=== PATIENT | female | born 1940 | race Caucasian/White ===

== ENCOUNTER → 2019-02-04 12:57 | Outpatient (CLI) | payer MEDICARE, BC, SELFPAY | PROVIDERS: Family Provider Nurse Practitioner Family; PCP Nurse Practitioner Family; Visit Provider Family Medicine | DX: M85.88 Other specified disorders of bone density and structure, other site (principal); Z78.0 Asymptomatic menopausal state; E21.3 Hyperparathyroidism, unspecified; Z82.62 Family history of osteoporosis | CPT/HCPCS: 77080 ==

== ENCOUNTER → 2019-08-16 12:40 | Outpatient (CLI) | payer MEDICARE, BC, SELFPAY ==
--- NOTE | 2019-08-16 12:47 | DI.US.S_ITS ---
PROCEDURE: US ABDOMEN COMPLETE INDICATIONS: PAIN TECHNIQUE: Real-time scanning was performed of the abdominal and retroperitoneal organs, with image documentation. COMPARISON: None. FINDINGS: Liver: Liver is normal in size and homogeneous in echotexture. Several scattered simple cysts are seen within the liver parenchyma, the largest measuring up to 3.9 cm left lateral hepatic segment. Gallbladder: Gallbladder appears normal Biliary ducts: Intrahepatic bile ducts are non-dilated. Extrahepatic bile duct caliber measures 4.3 mm. Normal is 6-7 mm or less in diameter, or 10 mm or less post-cholecystectomy. Pancreas: Visualized portions of the pancreas are sonographically normal. Spleen: Spleen is normal in size and homogeneous in echotexture. Kidneys: Kidneys are normal in size and echotexture. Right kidney measures 11.4 cm long; left kidney measures 10.7 cm long. No hydronephrosis or nephrolithiasis. No solid masses. Aorta: Visualized aorta is normal in caliber at less than 3 cm. Iliacs: Proximal common iliac arteries are normal in caliber at less than 2.5 cm. IVC: Intrahepatic inferior vena cava is patent. Miscellaneous: No free abdominal fluid. IMPRESSION: Source of current pain is not identified. Several scattered simple appearing hepatic cysts are noted, which generally are asymptomatic. Gallbladder and bile ducts appear normal. Dictated by: Jl Samuels M.D. on 08/16/2019 at 14:09 Approved by: Jl Samuels M.D. on 08/16/2019 at 14:16
== END ==
PROVIDERS: Family Provider Nurse Practitioner Family; PCP Family Medicine; Referring Provider Family Medicine; Visit Provider Family Medicine
DX: R10.11 Right upper quadrant pain (principal); K76.89 Other specified diseases of liver; R63.0 Anorexia
CPT/HCPCS: 76700

== ENCOUNTER → 2020-10-30 10:38 | Outpatient (CLI) | payer MEDICARE, BC, SELFPAY ==
[2020-10-30 19:18] LABS: Alanine Aminotransferase 28 IU/L (<35); Albumin 4.3 g/dL (3.5-5.0); Albumin Globulin Ratio 1.6 (1.0-2.8); Alkaline Phosphatase 84 U/L (38-126); Aspartate Aminotransferase 34 IU/L (14-36); BUN Creatinine Ratio 26.1 (6-22); Bilirubin Total 0.6 mg/dL (0.2-1.3); Blood Urea Nitrogen 23 mg/dL (7-17); Calcium 11.2 mg/dL (8.4-10.2); Carbon Dioxide 26 mmol/L (22-32); Chloride 101 mmol/L (98-107); Estimated Glomerular Filt Rate > 60.0 mL/min (>60); Globulin 2.7 g/dL (1.7-4.1); Glucose 117 mg/dL (80-110); HEMOLYSIS < 15 (0-50); Potassium 4.3 mmol/L (3.4-5.1); Sodium 134 mmol/L (137-145)
[2020-10-30 19:40] LABS: Add Manual Diff / Slide Review NO; Basophils Absolute Auto 0 /uL (0-100); Basophils Percent Auto 1.2 % (0-2); Eosinophils Absolute Auto 100 /uL (0-450); Hematocrit 38.3 % (36-46); Lymphocytes Absolute Auto 1300 /uL (1100-4500); Lymphocytes Percent Auto 34.4 % (25-40); Mean Corpuscular Hemoglobin 37.6 PG (26-34); Mean Corpuscular Volume 110.7 fL (80-100); Monocytes Absolute Auto 300 /uL (0-900); Monocytes Percent Auto 7.8 % (3-14); Neutrophils Absolute Auto 2100 /uL (1500-7000); Neutrophils Percent Auto 54.6 % (50-75); Platelet Count 130 X10^3/uL (150-400); Red Blood Cell Count 3.47 X10^6/uL (4.0-5.2); White Blood Cell Count 3.8 X10^3/uL (4.5-11.0)
[2020-10-30 19:44] LABS: TSH w/ Reflex to FT4 2.07 uIU/mL (0.47-4.68)
[2020-10-30 20:02] LABS: Vitamin B12 844 pg/mL (239-931)
[2020-10-30 20:50] LABS: Anisocytosis 1+; Macrocytosis 2+
== END ==
PROVIDERS: PCP Family Medicine; Visit Provider Family Medicine
DX: F10.10 Alcohol abuse, uncomplicated (principal); I10 Essential (primary) hypertension; E21.3 Hyperparathyroidism, unspecified; E78.2 Mixed hyperlipidemia; G62.9 Polyneuropathy, unspecified
CPT/HCPCS: 80053; 82397; 82607; 84443; 85025

== ENCOUNTER → 2021-01-25 09:02 | Outpatient (CLI) | payer MEDICARE, BC, SELFPAY ==
[2021-01-25 18:45] LABS: Alanine Aminotransferase 24 IU/L (<35); Albumin 4.2 g/dL (3.5-5.0); Albumin Globulin Ratio 1.6 (1.0-2.8); Alkaline Phosphatase 71 U/L (38-126); Aspartate Aminotransferase 30 IU/L (14-36); BUN Creatinine Ratio 26.1 (6-22); Bilirubin Total 0.8 mg/dL (0.2-1.3); Blood Urea Nitrogen 23 mg/dL (7-17); Calcium 11.2 mg/dL (8.4-10.2); Carbon Dioxide 25 mmol/L (22-32); Chloride 103 mmol/L (98-107); Cholesterol 170 mg/dL (140-199); Estimated Glomerular Filt Rate > 60.0 mL/min (>60); Globulin 2.7 g/dL (1.7-4.1); Glucose 104 mg/dL (80-110); HDL Cholesterol 104 mg/dL (40-60); HEMOLYSIS < 15 (0-50); LDL Cholesterol Calculated 55 mg/dL (<100); Potassium 4.1 mmol/L (3.4-5.1); Sodium 136 mmol/L (137-145); Total Protein 6.9 g/dL (6.3-8.2); Triglycerides 54 mg/dL (35-150)
[2021-01-25 18:48] LABS: Add Manual Diff / Slide Review NO; Basophils Absolute Auto 0 /uL (0-100); Basophils Percent Auto 1.3 % (0-2); Eosinophils Absolute Auto 100 /uL (0-450); Eosinophils Percent Auto 2.9 % (2-4); Hematocrit 39.1 % (36-46); Hemoglobin 13.2 g/dL (12.0-16.0); Lymphocytes Absolute Auto 1300 /uL (1100-4500); Lymphocytes Percent Auto 38.6 % (25-40); Mean Corpuscular HGB Conc 33.8 % (30-36); Mean Corpuscular Hemoglobin 37.4 PG (26-34); Mean Corpuscular Volume 110.7 fL (80-100); Monocytes Absolute Auto 300 /uL (0-900); Monocytes Percent Auto 8.5 % (3-14); Neutrophils Absolute Auto 1600 /uL (1500-7000); Neutrophils Percent Auto 48.7 % (50-75); Platelet Count 145 X10^3/uL (150-400); Red Blood Cell Count 3.53 X10^6/uL (4.0-5.2); White Blood Cell Count 3.3 X10^3/uL (4.5-11.0)
[2021-01-25 19:18] LABS: Anisocytosis 1+; Polychromasia 1+; Spherocytes 1+
[2021-01-25 19:19] LABS: Acanthocytes 1+
[2021-01-27 09:07] LABS: Parathyroid Hormone, Intact 113 pg/mL (15-65)
== END ==
PROVIDERS: PCP Family Medicine; Referring Provider Family Medicine; Visit Provider Family Medicine
DX: E21.3 Hyperparathyroidism, unspecified (principal); I10 Essential (primary) hypertension; G62.9 Polyneuropathy, unspecified; E78.2 Mixed hyperlipidemia; E83.52 Hypercalcemia
CPT/HCPCS: 80053; 80061; 82310; 83970; 85025

== ENCOUNTER → 2021-09-05 13:02 | Outpatient (CLI) | payer MEDICARE, BC, SELFPAY ==
[2021-09-05 19:52] LABS: Alanine Aminotransferase 23 IU/L (<35); Albumin 4.5 g/dL (3.5-5.0); Albumin Globulin Ratio 1.7 (1.0-2.8); Alkaline Phosphatase 61 U/L (38-126); Aspartate Aminotransferase 30 IU/L (14-36); Bilirubin Total 0.9 mg/dL (0.2-1.3); Bilirubin Unconjugated 0.7 mg/dL (0.0-1.1); Globulin 2.6 g/dL (1.7-4.1); HEMOLYSIS < 15 (0-50); Total Protein 7.1 g/dL (6.3-8.2)
[2021-09-05 19:55] LABS: Add Manual Diff / Slide Review NO; Basophils Absolute Auto 100 /uL (0-100); Basophils Percent Auto 1.2 % (0-2); Eosinophils Absolute Auto 100 /uL (0-450); Eosinophils Percent Auto 1.3 % (2-4); Hematocrit 37.3 % (36-46); Hemoglobin 13.2 g/dL (12.0-16.0); Lymphocytes Absolute Auto 1400 /uL (1100-4500); Mean Corpuscular HGB Conc 35.3 % (30-36); Mean Corpuscular Hemoglobin 38.6 PG (26-34); Mean Corpuscular Volume 109.4 fL (80-100); Monocytes Absolute Auto 300 /uL (0-900); Monocytes Percent Auto 7.3 % (3-14); Neutrophils Absolute Auto 2300 /uL (1500-7000); Neutrophils Percent Auto 55.2 % (50-75); Platelet Count 142 X10^3/uL (150-400); Red Blood Cell Count 3.41 X10^6/uL (4.0-5.2); White Blood Cell Count 4.1 X10^3/uL (4.5-11.0)
== END ==
PROVIDERS: Dermatology; PCP Family Medicine
DX: G62.9 Polyneuropathy, unspecified (principal); B35.1 Tinea unguium
CPT/HCPCS: 80076; 85025

== ENCOUNTER → 2021-10-22 11:10 | Outpatient (CLI) | payer MEDICARE, BC, SELFPAY ==
[2021-10-22 18:54] LABS: Alanine Aminotransferase 24 IU/L (<35); Albumin 4.4 g/dL (3.5-5.0); Albumin Globulin Ratio 1.6 (1.0-2.8); Alkaline Phosphatase 75 U/L (38-126); Aspartate Aminotransferase 32 IU/L (14-36); BUN Creatinine Ratio 19.6 (6-22); Bilirubin Total 0.9 mg/dL (0.2-1.3); Blood Urea Nitrogen 18 mg/dL (7-17); Calcium 10.9 mg/dL (8.4-10.2); Carbon Dioxide 25 mmol/L (22-32); Chloride 100 mmol/L (98-107); Estimated Glomerular Filt Rate > 60 mL/min (>60); Globulin 2.7 g/dL (1.7-4.1); Glucose 112 mg/dL (80-110); HEMOLYSIS < 15 (0-50); Sodium 136 mmol/L (137-145); Total Protein 7.1 g/dL (6.3-8.2)
[2021-10-22 18:56] LABS: Alanine Aminotransferase 25 IU/L (<35); Albumin 4.3 g/dL (3.5-5.0); Albumin Globulin Ratio 1.6 (1.0-2.8); Alkaline Phosphatase 74 U/L (38-126); Aspartate Aminotransferase 33 IU/L (14-36); Bilirubin Total 0.8 mg/dL (0.2-1.3); Bilirubin Unconjugated 0.6 mg/dL (0.0-1.1); Globulin 2.7 g/dL (1.7-4.1); HEMOLYSIS < 15 (0-50)
[2021-10-22 19:08] LABS: Add Manual Diff / Slide Review NO; Basophils Absolute Auto 0 /uL (0-100); Basophils Percent Auto 1.2 % (0-2); Eosinophils Absolute Auto 100 /uL (0-450); Eosinophils Percent Auto 1.8 % (2-4); Hematocrit 37.2 % (36-46); Hemoglobin 12.7 g/dL (12.0-16.0); Lymphocytes Absolute Auto 1300 /uL (1100-4500); Lymphocytes Percent Auto 38.2 % (25-40); Mean Corpuscular HGB Conc 34.2 % (30-36); Mean Corpuscular Hemoglobin 38.1 PG (26-34); Mean Corpuscular Volume 111.4 fL (80-100); Monocytes Absolute Auto 300 /uL (0-900); Monocytes Percent Auto 7.6 % (3-14); Neutrophils Absolute Auto 1700 /uL (1500-7000); Neutrophils Percent Auto 51.2 % (50-75); Platelet Count 147 X10^3/uL (150-400); Red Blood Cell Count 3.34 X10^6/uL (4.0-5.2); Red Cell Distribution Width 13.7 % (11.6-14.8); White Blood Cell Count 3.3 X10^3/uL (4.5-11.0)
[2021-10-22 19:25] LABS: Thyroid Stimulating Hormone 2.05 uIU/mL (0.47-4.68)
[2021-10-22 20:39] LABS: Macrocytosis 2+; Platelet Estimate Adequate on smear
[2021-10-26 09:52] LABS: Vitamin B12 831 pg/mL (239-931)
== END ==
PROVIDERS: Family Medicine; PCP Family Medicine
DX: B35.1 Tinea unguium (principal); I10 Essential (primary) hypertension; Z00.00 Encounter for general adult medical examination without abnormal findings; E21.3 Hyperparathyroidism, unspecified
CPT/HCPCS: 80053; 80076; 82607; 84443; 85025

== ENCOUNTER → 2021-12-17 11:42 | Outpatient (CLI) | payer MEDICARE, BC, SELFPAY ==
[2021-12-17 18:24] LABS: Add Manual Diff / Slide Review NO; Basophils Absolute Auto 0 /uL (0-100); Basophils Percent Auto 1.2 % (0-2); Eosinophils Absolute Auto 100 /uL (0-450); Eosinophils Percent Auto 1.4 % (2-4); Hematocrit 35.9 % (36-46); Hemoglobin 12.5 g/dL (12.0-16.0); Lymphocytes Absolute Auto 1200 /uL (1100-4500); Lymphocytes Percent Auto 33.6 % (25-40); Mean Corpuscular HGB Conc 34.8 % (30-36); Mean Corpuscular Hemoglobin 39.2 PG (26-34); Mean Corpuscular Volume 112.6 fL (80-100); Monocytes Absolute Auto 300 /uL (0-900); Monocytes Percent Auto 7.1 % (3-14); Neutrophils Absolute Auto 2100 /uL (1500-7000); Neutrophils Percent Auto 56.7 % (50-75); Platelet Count 127 X10^3/uL (150-400); Red Blood Cell Count 3.18 X10^6/uL (4.0-5.2); Red Cell Distribution Width 13.3 % (11.6-14.8); White Blood Cell Count 3.6 X10^3/uL (4.5-11.0)
[2021-12-17 18:37] LABS: Vitamin D 25 Hydroxy (D3) 67.7 ng/mL (30.0-100.0)
[2021-12-17 19:00] LABS: Alanine Aminotransferase 22 IU/L (<35); Albumin 4.3 g/dL (3.5-5.0); Albumin Globulin Ratio 1.7 (1.0-2.8); Alkaline Phosphatase 71 U/L (38-126); Aspartate Aminotransferase 34 IU/L (14-36); BUN Creatinine Ratio 19.8 (6-22); Bilirubin Total 0.8 mg/dL (0.2-1.3); Blood Urea Nitrogen 19 mg/dL (7-17); Calcium 10.8 mg/dL (8.4-10.2); Carbon Dioxide 24 mmol/L (22-32); Chloride 103 mmol/L (98-107); Estimated Glomerular Filt Rate 59 mL/min (>60); Globulin 2.5 g/dL (1.7-4.1); Glucose 91 mg/dL (80-110); HEMOLYSIS 33 (0-50); Potassium 3.9 mmol/L (3.4-5.1); Sodium 135 mmol/L (137-145); Total Protein 6.8 g/dL (6.3-8.2)
[2021-12-17 19:21] LABS: Vitamin B12 858 pg/mL (239-931)
== END ==
PROVIDERS: PCP Family Medicine; Visit Provider Family Medicine
DX: E21.3 Hyperparathyroidism, unspecified (principal); I10 Essential (primary) hypertension; G62.9 Polyneuropathy, unspecified; D64.9 Anemia, unspecified
CPT/HCPCS: 80053; 82306; 82607; 85025

== ENCOUNTER → 2021-12-24 15:24 | Outpatient (CLI) | payer MEDICARE, BC, SELFPAY | PROVIDERS: PCP Family Medicine; Visit Provider Physician Assistant | DX: N94.9 Unspecified condition associated with female genital organs and menstrual cycle (principal) | CPT/HCPCS: 87070; 87075; 87077; 87186; 87205 ==

== ENCOUNTER → 2022-02-17 09:22 | Outpatient (CLI) | payer MEDICARE, BC, SELFPAY ==
[2022-02-17 19:47] LABS: Add Manual Diff / Slide Review NO; Basophils Absolute Auto 0 /uL (0-100); Basophils Percent Auto 0.7 % (0-2); Eosinophils Absolute Auto 100 /uL (0-450); Eosinophils Percent Auto 2.1 % (2-4); Hematocrit 35.9 % (36-46); Hemoglobin 12.7 g/dL (12.0-16.0); Lymphocytes Absolute Auto 1300 /uL (1100-4500); Lymphocytes Percent Auto 37.5 % (25-40); Mean Corpuscular HGB Conc 35.4 % (30-36); Mean Corpuscular Hemoglobin 39.3 PG (26-34); Monocytes Absolute Auto 200 /uL (0-900); Monocytes Percent Auto 6.6 % (3-14); Neutrophils Absolute Auto 1900 /uL (1500-7000); Neutrophils Percent Auto 53.1 % (50-75); Platelet Count 121 X10^3/uL (150-400); Red Blood Cell Count 3.23 X10^6/uL (4.0-5.2); Red Cell Distribution Width 13.8 % (11.6-14.8); White Blood Cell Count 3.5 X10^3/uL (4.5-11.0)
[2022-02-17 19:52] LABS: Alanine Aminotransferase 23 IU/L (<35); Albumin Globulin Ratio 1.4 (1.0-2.8); Alkaline Phosphatase 91 U/L (38-126); Aspartate Aminotransferase 38 IU/L (14-36); BUN Creatinine Ratio 13.8 (6-22); Bilirubin Total 0.9 mg/dL (0.2-1.3); Blood Urea Nitrogen 12 mg/dL (7-17); Calcium 10.7 mg/dL (8.4-10.2); Carbon Dioxide 24 mmol/L (22-32); Chloride 102 mmol/L (98-107); Cholesterol 163 mg/dL (140-199); Estimated Glomerular Filt Rate > 60 mL/min (>60); Globulin 2.8 g/dL (1.7-4.1); Glucose 89 mg/dL (80-110); HEMOLYSIS 19 (0-50); HEMOLYSIS 33 (0-50); Iron 156 ug/dL (37-170); Potassium 3.6 mmol/L (3.4-5.1); Sodium 134 mmol/L (137-145); Total Protein 6.8 g/dL (6.3-8.2); Triglycerides 83 mg/dL (35-150)
[2022-02-17 20:05] LABS: Percent Iron Saturation 69 % (15-50); Total Iron Binding Capacity 227 ug/dL (265-497); Transferrin 190 mg/dL (206-381)
[2022-02-17 20:14] LABS: Polychromasia 1+
[2022-02-17 20:15] LABS: Anisocytosis 1+
[2022-02-17 20:16] LABS: Rouleaux 1+
[2022-02-17 20:20] LABS: HDL Cholesterol 115 mg/dL (40-60); LDL Cholesterol Calculated 31 mg/dL (<100)
[2022-02-17 20:41] LABS: Vitamin B12 745 pg/mL (239-931)
[2022-02-19 09:56] LABS: Calcium 10.7 mg/dL (8.7-10.3); Parathyroid Hormone, Intact 90 pg/mL (15-65)
== END ==
PROVIDERS: PCP Family Medicine; Visit Provider Family Medicine
DX: D64.9 Anemia, unspecified (principal); E21.3 Hyperparathyroidism, unspecified; E78.2 Mixed hyperlipidemia; E83.52 Hypercalcemia; I10 Essential (primary) hypertension
CPT/HCPCS: 80053; 80061; 82310; 82607; 83540; 83550; 83970; 85025

== ENCOUNTER → 2022-04-07 14:17 | Outpatient (CLI) | payer MEDICARE, BC, SELFPAY ==
[2022-04-07 19:56] LABS: Add Manual Diff / Slide Review NO; Basophils Absolute Auto 100 /uL (0-100); Basophils Percent Auto 1.4 % (0-2); Eosinophils Absolute Auto 0 /uL (0-450); Eosinophils Percent Auto 0.8 % (2-4); Hematocrit 35.3 % (36-46); Hemoglobin 12.2 g/dL (12.0-16.0); Lymphocytes Absolute Auto 800 /uL (1100-4500); Lymphocytes Percent Auto 19.9 % (25-40); Mean Corpuscular HGB Conc 34.6 % (30-36); Mean Corpuscular Hemoglobin 38.1 PG (26-34); Mean Corpuscular Volume 110.1 fL (80-100); Monocytes Absolute Auto 300 /uL (0-900); Monocytes Percent Auto 6.7 % (3-14); Neutrophils Absolute Auto 3000 /uL (1500-7000); Neutrophils Percent Auto 71.2 % (50-75); Platelet Count 170 X10^3/uL (150-400); Red Blood Cell Count 3.21 X10^6/uL (4.0-5.2); Red Cell Distribution Width 13.4 % (11.6-14.8); White Blood Cell Count 4.2 X10^3/uL (4.5-11.0)
== END ==
PROVIDERS: PCP Family Medicine; Visit Provider Family Medicine
DX: I10 Essential (primary) hypertension (principal); D61.818 Other pancytopenia; E78.2 Mixed hyperlipidemia; I26.02 Saddle embolus of pulmonary artery with acute cor pulmonale; I27.81 Cor pulmonale (chronic); I82.433 Acute embolism and thrombosis of popliteal vein, bilateral
CPT/HCPCS: 85025

== ENCOUNTER → 2022-09-29 13:12 | Outpatient (CLI) | payer MEDICARE, BC, SELFPAY ==
[2022-09-29 20:08] LABS: BUN Creatinine Ratio 22.6 (6-22); Blood Urea Nitrogen 21 mg/dL (7-17); Carbon Dioxide 25 mmol/L (22-32); Chloride 99 mmol/L (98-107); Cholesterol 154 mg/dL (140-199); Estimated Glomerular Filt Rate > 60 mL/min (>60); Glucose 119 mg/dL (80-110); HDL Cholesterol 90 mg/dL (40-60); HEMOLYSIS < 15 (0-50); LDL Cholesterol Calculated 49 mg/dL (<100); Sodium 133 mmol/L (137-145); Triglycerides 74 mg/dL (35-150)
[2022-09-29 20:17] LABS: Vitamin D 25 Hydroxy (D3) 71.9 ng/mL (30.0-100.0)
[2022-10-02 14:06] LABS: Albumin 3.8 g/dL (2.9-4.4); Alpha 1 Globulin 0.3 g/dL (0.0-0.4); Alpha 2 Globulin 0.6 g/dL (0.4-1.0); Beta 1 Globulin 0.8 g/dL (0.7-1.3); Protein, Total 6.5 g/dL (6.0-8.5)
[2022-10-03 07:36] LABS: Calcium 10.8 mg/dL (8.7-10.3); Parathyroid Hormone, Intact 90 pg/mL (15-65)
== END ==
PROVIDERS: PCP Family Medicine; Visit Provider Family Medicine
DX: I10 Essential (primary) hypertension (principal); E21.3 Hyperparathyroidism, unspecified; E83.52 Hypercalcemia; D64.9 Anemia, unspecified; G62.9 Polyneuropathy, unspecified; D61.818 Other pancytopenia; F10.10 Alcohol abuse, uncomplicated; I26.02 Saddle embolus of pulmonary artery with acute cor pulmonale; I27.81 Cor pulmonale (chronic); I82.433 Acute embolism and thrombosis of popliteal vein, bilateral; E78.2 Mixed hyperlipidemia; E55.9 Vitamin D deficiency, unspecified
CPT/HCPCS: 80048; 80061; 82306; 82310; 83970; 84155; 84165

== ENCOUNTER → 2022-12-08 12:11 | Outpatient (CLI) | payer MEDICARE, BC, SELFPAY ==
--- NOTE | 2022-12-08 12:12 | DI.RAD.S_ITS ---
PROCEDURE: XR KUB INDICATIONS: fall TECHNIQUE: One view of the abdomen acquired. COMPARISON: None. FINDINGS: Surgical changes and devices: None. Bowel: Prominent bowel gas is seen throughout the abdomen, particularly with stool and colonic gas. Soft tissues: Scattered costal cartilage calcifications. No suspicious calcifications elsewhere. Bones: Spine and hip degenerative changes. IMPRESSION: Limited supine radiography without acute radiographic abnormality. There is increased bowel gas and stool burden. Scattered osseous degenerative changes. Consider CT if there is concern for acute abdomen. Dictated by: Paul Berry M.D. on 12/08/2022 at 14:43 Approved by: Paul Berry M.D. on 12/08/2022 at 14:44
== END ==
PROVIDERS: PCP Family Medicine; Referring Provider Surgery; Visit Provider Surgery
DX: M47.816 Spondylosis without myelopathy or radiculopathy, lumbar region (principal); M25.551 Pain in right hip; M25.552 Pain in left hip
CPT/HCPCS: 74018

== ENCOUNTER → 2022-12-15 11:40 | Outpatient (CLI) | payer MEDICARE, BC, SELFPAY ==
--- NOTE | 2022-12-15 12:18 | DI.MRI.S_ITS ---
PROCEDURE: MR THORACIC SPINE WO CON INDICATIONS: low back pain radiating to lower abdomen TECHNIQUE: Noncontrast sagittal T1 spine echo and T2 fast spin echo, sagittal STIR, and T2 fast spin echo through the thoracic spine. COMPARISON: None. FINDINGS: Image quality: Excellent. Alignment and Curvature: There is normal bony alignment. Bone Marrow: There is acute to subacute compression fracture at L2 predominantly involving the superior endplate without significant overall height loss. No retropulsed fracture fragment present. Marrow edema is noted. Marrow signal, height and alignment in the thoracic spine proper is maintained. Spinal Cord: Visualized spinal cord is normal in size and signal. Paraspinous Soft Tissues: No paravertebral masses. Miscellaneous: The central canal and foramina are widely patent throughout the thoracic spine. At L1-2, posterior disc bulge results in mild central stenosis. At L2-3, circumferential disc bulge again results in mild central stenosis. At L3-4, circumferential disc bulge and ligamentum flavum laxity results in moderate central and severe left foraminal stenosis IMPRESSION: Acute to subacute L2 compression fracture with marrow edema and no retropulsed fracture fragment. 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 on 12/15/2022 at 14:59
== END ==
PROVIDERS: PCP Family Medicine; Referring Provider Family Medicine; Visit Provider Family Medicine
DX: M48.56XA Collapsed vertebra, not elsewhere classified, lumbar region, initial encounter for fracture; M47.26 Other spondylosis with radiculopathy, lumbar region; M51.16 Intervertebral disc disorders with radiculopathy, lumbar region
CPT/HCPCS: 72146

== ENCOUNTER 2022-12-15 13:57 | Emergency (ER) | payer MEDICARE, BC, SELFPAY ==
[2022-12-15 14:12] VITALS: BP 133/60; PULSE 60; RESP 16; TEMP 36.7; O2SAT 100; BMI 22.1
--- NOTE | 2022-12-15 14:24 | DI.CT.S_ITS ---
PROCEDURE: CT HEAD/BRAIN WO CON INDICATIONS: Fall on thinners come right occipital hematoma TECHNIQUE: Noncontrast 4.5 mm thick angled axial sections acquired from the foramen magnum to the vertex, with coronal and sagittal reformats. For radiation dose reduction, the following was used: automated exposure control, adjustment of mA and/or kV according to patient size. COMPARISON: None. FINDINGS: Image quality: Excellent. CSF spaces: Basal cisterns are patent. No extra-axial fluid collections. Ventricles are normal in size and shape. Brain: No midline shift. No intracranial masses or hemorrhage. Herrera-white matter interface is normal. Remote left basal ganglia infarct. Skull and face: Calvarium and visualized facial bones are intact, without suspicious lesions. Sinuses: Near complete opacification of the right maxillary sinus, with air-fluid levels. Bony sclerosis of the right maxillary cristina IMPRESSION: No acute intracranial pathology. Acute on chronic right maxillary sinusitis. Dictated by: Dangelo Davis M.D. on 12/15/2022 at 14:50 Approved by: Dangelo Davis M.D. on 12/15/2022 at 14:52
--- NOTE | 2022-12-15 14:24 | ED.FALL ---
HPI - Fall General Chief Complaint: Fall Stated Complaint: fell last night lump on head bleeding Time Seen by Provider: 12/15/22 14:14 Source: patient Mode of arrival: Wheelchair Limitations: no limitations History of Present Illness HPI Narrative: 82-year-old female. Is on anticoagulation. Is here for evaluation of injuries that she sustained when she fell yesterday. She states she was walking in her house yesterday. She states she just lost her balance and fell over. No loss of consciousness. They did have to have neighbors come over and pick her up. She was getting an MRI today of her upper back. This was ordered by her primary doctor. She was advised by the MRI staff to come to the emergency department because of some dried blood on the back of her head. She reports no neck pain. No new pain from the fall yesterday. Related Data Home Medications Medication Instructions Recorded Confirmed ASCORBIC ACID (VITAMIN C) 1,000 mg PO Q DAY ##0 03/16/12 12/11/22 Coenzyme Q10 (#CO ENZYME Q-10) 50 mg PO BID ##0 03/16/12 12/11/22 VITAMIN D (Vitamin D3) 2,000 unit PO BID ##0 03/16/12 12/11/22 milk thistle PO 10/21/20 12/11/22 omega-3 fatty acids 1,000 mg 1,000 mg PO DAILY 10/21/20 12/11/22 capsule vitamin K2 100 mcg capsule 100 mcg PO DAILY 10/21/20 12/11/22 enalapril maleate 5 mg tablet 5 mg PO BID 08/19/22 12/11/22 (Vasotec) Previous Rx's Medication Instructions Recorded hydrochlorothiazide 25 mg tablet 25 mg PO DAILY #90 tabs 12/17/21 mupirocin 2 % topical ointment 1 applic topical TID #22 grams 12/26/21 atorvastatin 20 mg tablet 20 mg PO BEDTIME #90 tabs 03/12/22 apixaban 5 mg tablet (Eliquis) 5 mg PO BID #180 tabs 03/24/22 ferrous sulfate 325 mg (65 mg 325 mg PO DAILY #90 tabs 09/12/22 iron) tablet (FeroSul) gabapentin 100 mg capsule See Rx Instructions PO TID #90 caps 12/11/22 Allergies Allergy/AdvReac Type Severity Reaction Status Date / Time ciprofloxacin [From Cipro] Allergy Intermediate Rash Verified 12/15/22 14:12 propofol Allergy Unknown Verified 12/15/22 14:12 Review of Systems Constitutional Constitutional: Reports system reviewed and no additional complaints, except as documented Musculoskeletal Musculoskeletal: Reports system reviewed and no additional complaints, except as documented Integumentary/Breasts Skin/Breast: Reports system reviewed and no additional complaints, except as documented Neurologic Neurologic: Reports system reviewed and no additional complaints, except as documented Hematologic/Lymphatic On Anticoagulants: No Patient History Medical History Anxiety and depression Bifascicular block Breast cancer Chicken pox (~1942) Chronic back pain Complete uterovaginal prolapse Cystocele Hemorrhoid Leukopenia 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 Measles (~1943) Occlusion and stenosis of unspecified carotid artery Paroxysmal tachycardia, unspecified Personal history of malignant neoplasm of breast Poisoning by vitamins, accidental (unintentional), initial encounter Primary hyperparathyroidism Pyuria Thoracic aortic ectasia Tinnitus, unspecified ear Surgical History Anesthesia History of cataract removal with insertion of prosthetic lens (~2015) History of knee replacement History of knee replacement History of lumpectomy Family History Brother Cancer Child Age: 53 Multiple sclerosis Father Cancer Hypertension Mother Cancer Sister Age: 81 Heart attack Sister Cancer Social History Smoking Status: Never smoker Smoking Status: Never smoker Substance Use Type: does not use Exam Initial Vital Signs Initial Vital Signs: Vital Signs Temperature 98.0 F 12/15/22 14:12 Pulse Rate 60 12/15/22 14:12 Respiratory Rate 16 12/15/22 14:12 Blood Pressure 133/60 12/15/22 14:12 Pulse Oximetry 100 12/15/22 14:12 Oxygen Delivery Method Room Air 12/15/22 14:12 HENMT Head: contusion (Right occipital region) Resp Effort & Inspection: normal respiratory effort Auscultation: clear to auscultation bilaterally Cardio Rate: regular rate Back/Spine/Pelvis Cervical Spine: No cervical spinal tenderness Thoracic/Lumbar Spine: thoracic spinal tenderness (This is not new from the fall) Skin Other: Contusion of the right occipital region Neuro General: patient alert, patient awake and moves all extremities Extrem General: capillary refill normal Scores Nexus Score for C-Spine Focal Neurologic deficit present: No Midline spinal tenderness present: No Altered level of conciousness present: No Intoxication present: No Distracting Injury Present: No Nexus Criteria for C-spine: 0 Course Orders Ordered: ED Orders 12/15/22 14:15 Basic Metabolic Panel Stat Complete Blood Count AUTO DIFF Stat 12/15/22 14:24 CT head/brain wo con Stat Vital Signs Vital signs: Vital Signs - 8 hr 12/15/22 14:12 Temperature 98.0 F Pulse Rate 60 Respiratory Rate 16 Blood Pressure 133/60 Pulse Oximetry 100 Oxygen Delivery Method Room Air MDM - Fall Imaging Data CT scan - head: Radiologist's Impression: PROCEDURE:? CT HEAD/BRAIN WO CON ? INDICATIONS:? Fall on thinners come right occipital hematoma ? TECHNIQUE:? Noncontrast 4.5 mm thick angled axial sections acquired from the foramen magnum to the vertex, with coronal and sagittal reformats.? For radiation dose reduction, the following was used:? automated exposure control, adjustment of mA and/or kV according to patient size.? ? COMPARISON:? None. ? FINDINGS:? Image quality:? Excellent.? ? CSF spaces:? Basal cisterns are patent.? No extra-axial fluid collections.? Ventricles are normal in size and shape.? ? Brain:? No midline shift.? No intracranial masses or hemorrhage.? Herrera-white matter interface is normal.? Remote left basal ganglia infarct. ? Skull and face:? Calvarium and visualized facial bones are intact, without suspicious lesions.? ? Sinuses:? Near complete opacification of the right maxillary sinus, with air-fluid levels.? Bony sclerosis of the right maxillary cristina ? IMPRESSION:? No acute intracranial pathology.? ? Acute on chronic right maxillary sinusitis. [facility] Narrative Medical decision making narrative: Patient fell yesterday. She states she just lost her balance and fell over. She would an MRI that was scheduled today of her upper back. This was not from the fall yesterday but from prior upper back discomfort. She was sent here to the emergency department from the MRI staff because of some dried blood on the back of her head. This area was cleaned. There is no injury that requires intervention here in the ER. Her head CT is unremarkable. Her cervical spine is cleared by nexus criteria. Patient reports no upper or lower extremity discomfort. We will hold on further radiologic studies for now. Will discharge patient home. She can continue to take all of her medications as directed. She was given return precautions. She expressed understanding and agreement. Discharge Plan Departure Patient Disposition: Home Clinical Impression: Contusion of scalp Instructions: Contusion, How to Prevent Falls Activity Restrictions/Additional Instructions: I recommend that you continue to take all of your medications as directed. You can shower like normal. Contact your primary doctor for a follow-up. Return to the emergency department for new or worsening symptoms. Prescriptions: No Action VITAMIN D (Vitamin D3) 2,000 unit PO BID Qty: 0 ASCORBIC ACID (VITAMIN C) 1,000 mg PO Q DAY Qty: 0 Coenzyme Q10 (#CO ENZYME Q-10) 50 mg PO BID Qty: 0 atorvastatin 20 mg tablet 20 mg PO BEDTIME Qty: 90 3RF omega-3 fatty acids 1,000 mg capsule 1,000 mg PO DAILY milk thistle PO vitamin K2 100 mcg capsule 100 mcg PO DAILY gabapentin 100 mg capsule See Rx Instructions PO TID Qty: 90 0RF Rx Instructions: Take one to two tablets three times daily for thoracic pain hydrochlorothiazide 25 mg tablet 25 mg PO DAILY Qty: 90 3RF mupirocin 2 % ointment 1 applic topical TID Qty: 22 0RF Eliquis 5 mg tablet 5 mg PO BID Qty: 180 3RF enalapril maleate [Vasotec] 5 mg tablet 5 mg PO BID ferrous sulfate [FeroSul] 325 mg (65 mg iron) tablet 325 mg PO DAILY Qty: 90 0RF Referrals: Myles Grace MD [Primary Care Provider] - Stand Alone Forms: Patient Portal/API
== END 2022-12-15 15:21 | disposition home or self-care (01) ==
PROVIDERS: Emergency Provider Emergency Medicine; PCP Family Medicine
DX: S00.03XA Contusion of scalp, initial encounter (principal); W18.30XA Fall on same level, unspecified, initial encounter; M48.56XA Collapsed vertebra, not elsewhere classified, lumbar region, initial encounter for fracture; M47.26 Other spondylosis with radiculopathy, lumbar region; M51.16 Intervertebral disc disorders with radiculopathy, lumbar region
CPT/HCPCS: 70450; 72146; 99283; 99284

== ENCOUNTER → 2023-03-02 11:30 | Outpatient (CLI) | payer MEDICARE, BC, SELFPAY ==
[2023-03-02 20:15] LABS: Add Manual Diff / Slide Review NO; Basophils Absolute Auto 0 /uL (0-100); Basophils Percent Auto 1.5 % (0-2); Eosinophils Absolute Auto 100 /uL (0-450); Eosinophils Percent Auto 2.8 % (2-4); Hematocrit 36.4 % (36-46); Hemoglobin 12.7 g/dL (12.0-16.0); Lymphocytes Absolute Auto 1300 /uL (1100-4500); Lymphocytes Percent Auto 38.5 % (25-40); Mean Corpuscular HGB Conc 34.8 % (30-36); Mean Corpuscular Hemoglobin 39.1 PG (26-34); Mean Corpuscular Volume 112.4 fL (80-100); Monocytes Absolute Auto 300 /uL (0-900); Neutrophils Absolute Auto 1600 /uL (1500-7000); Neutrophils Percent Auto 47.2 % (50-75); Platelet Count 156 X10^3/uL (150-400); Red Blood Cell Count 3.24 X10^6/uL (4.0-5.2); Red Cell Distribution Width 16.1 % (11.6-14.8); White Blood Cell Count 3.3 X10^3/uL (4.5-11.0)
[2023-03-02 20:16] LABS: Alanine Aminotransferase 22 IU/L (<35); Albumin 3.9 g/dL (3.5-5.0); Albumin Globulin Ratio 1.5 (1.0-2.8); Alkaline Phosphatase 69 U/L (38-126); Aspartate Aminotransferase 28 IU/L (14-36); BUN Creatinine Ratio 25.3 (6-22); Bilirubin Total 0.5 mg/dL (0.2-1.3); Blood Urea Nitrogen 22 mg/dL (7-17); Calcium 11.2 mg/dL (8.4-10.2); Carbon Dioxide 24 mmol/L (22-32); Chloride 101 mmol/L (98-107); Estimated Glomerular Filt Rate > 60 mL/min (>60); Globulin 2.6 g/dL (1.7-4.1); Glucose 117 mg/dL (80-110); HEMOLYSIS < 15 (0-50); Potassium 3.8 mmol/L (3.4-5.1); Sodium 136 mmol/L (137-145); Total Protein 6.5 g/dL (6.3-8.2)
[2023-03-02 20:37] LABS: Macrocytosis 1+
== END ==
PROVIDERS: PCP Family Medicine; Visit Provider Family Medicine
DX: I77.810 Thoracic aortic ectasia (principal); R10.9 Unspecified abdominal pain
CPT/HCPCS: 80053; 85025

== ENCOUNTER → 2023-08-27 12:24 | Outpatient (CLI) | payer MEDICARE, BC, SELFPAY ==
[2023-08-27 19:30] LABS: Add Manual Diff / Slide Review NO; Basophils Absolute Auto 0 /uL (0-100); Basophils Percent Auto 0.8 % (0-2); Eosinophils Absolute Auto 0 /uL (0-450); Eosinophils Percent Auto 1.5 % (2-4); Hematocrit 32.8 % (36-46); Hemoglobin 11.4 g/dL (12.0-16.0); Lymphocytes Absolute Auto 1000 /uL (1100-4500); Lymphocytes Percent Auto 29.1 % (25-40); Mean Corpuscular HGB Conc 34.8 % (30-36); Mean Corpuscular Hemoglobin 37.5 PG (26-34); Mean Corpuscular Volume 107.8 fL (80-100); Monocytes Absolute Auto 200 /uL (0-900); Monocytes Percent Auto 7.5 % (3-14); Neutrophils Absolute Auto 2000 /uL (1500-7000); Neutrophils Percent Auto 61.1 % (50-75); Platelet Count 192 X10^3/uL (150-400); Red Blood Cell Count 3.04 X10^6/uL (4.0-5.2); Red Cell Distribution Width 15.2 % (11.6-14.8); White Blood Cell Count 3.3 X10^3/uL (4.5-11.0)
[2023-08-27 20:28] LABS: BUN Creatinine Ratio 27.7 (6-22); Blood Urea Nitrogen 23 mg/dL (7-17); Calcium 11.3 mg/dL (8.4-10.2); Carbon Dioxide 24 mmol/L (22-32); Chloride 108 mmol/L (98-107); Cholesterol 153 mg/dL (140-199); Estimated Glomerular Filt Rate > 60 mL/min (>60); Glucose 105 mg/dL (80-110); HDL Cholesterol 69 mg/dL (40-60); HEMOLYSIS < 15 (0-50); LDL Cholesterol Calculated 71 mg/dL (<100); Potassium 3.9 mmol/L (3.4-5.1); Sodium 139 mmol/L (137-145); Triglycerides 67 mg/dL (35-150)
== END ==
PROVIDERS: PCP Family Medicine; Visit Provider Family Medicine
DX: I47.9 Paroxysmal tachycardia, unspecified (principal); I65.29 Occlusion and stenosis of unspecified carotid artery; E83.52 Hypercalcemia; I10 Essential (primary) hypertension; E78.2 Mixed hyperlipidemia
CPT/HCPCS: 80048; 80061; 82306; 85025

== ENCOUNTER → 2024-05-11 12:04 | Outpatient (CLI) | payer MEDICARE, BC, SELFPAY ==
[2024-05-11 20:32] LABS: Reticulocyte Count, Percent 1.3 % (1.1-2.6)
[2024-05-11 20:35] LABS: HEMOLYSIS 23 (0-50); Iron 131 ug/dL (37-170)
[2024-05-11 20:39] LABS: BUN Creatinine Ratio 27.5 (6-22); Blood Urea Nitrogen 22 mg/dL (7-17); Calcium 10.5 mg/dL (8.4-10.2); Carbon Dioxide 23 mmol/L (22-32); Chloride 111 mmol/L (98-107); Cholesterol 199 mg/dL (140-199); Estimated Glomerular Filt Rate > 60 mL/min (>60); Glucose 98 mg/dL (80-110); HDL Cholesterol 83 mg/dL (40-60); HEMOLYSIS < 15 (0-50); LDL Cholesterol Calculated 101 mg/dL (<100); Potassium 4.6 mmol/L (3.4-5.1); Sodium 137 mmol/L (137-145); Triglycerides 74 mg/dL (35-150)
[2024-05-11 20:46] LABS: Basophils Absolute Auto 0 /uL (0-100); Basophils Percent Auto 1.3 % (0-2); Eosinophils Absolute Auto 100 /uL (0-450); Eosinophils Percent Auto 3.1 % (2-4); Hematocrit 34.7 % (36-46); Hemoglobin 11.4 g/dL (12.0-16.0); Lymphocytes Absolute Auto 1300 /uL (1100-4500); Lymphocytes Percent Auto 38.3 % (25-40); Mean Corpuscular HGB Conc 32.8 % (30-36); Mean Corpuscular Hemoglobin 37.9 PG (26-34); Mean Corpuscular Volume 115.4 fL (80-100); Monocytes Absolute Auto 200 /uL (0-900); Monocytes Percent Auto 7.5 % (3-14); Neutrophils Absolute Auto 1700 /uL (1500-7000); Neutrophils Percent Auto 49.8 % (50-75); Platelet Count 172 X10^3/uL (150-400); Red Cell Distribution Width 18.9 % (11.6-14.8); White Blood Cell Count 3.3 X10^3/uL (4.5-11.0)
[2024-05-11 20:47] LABS: Percent Iron Saturation 64 % (15-50); Total Iron Binding Capacity 205 ug/dL (265-497); Transferrin 190 mg/dL (206-381)
[2024-05-11 20:49] LABS: Add Manual Diff / Slide Review SLIDE REVIEW
[2024-05-11 20:59] LABS: Vitamin D 25 Hydroxy (D3) 46.1 ng/mL (30.0-100.0)
[2024-05-11 21:08] LABS: TSH w/ Reflex to FT4 2.53 uIU/mL (0.47-4.68)
[2024-05-11 21:21] LABS: Macrocytosis 2+
[2024-05-11 21:27] LABS: Vitamin B12 262 pg/mL (239-931)
[2024-05-13 19:38] LABS: Calcium 10.6 mg/dL (8.7-10.3); Parathyroid Hormone, Intact 146 pg/mL (15-65)
== END ==
PROVIDERS: PCP Family Medicine; Visit Provider Family Medicine
DX: D64.9 Anemia, unspecified (principal); I65.29 Occlusion and stenosis of unspecified carotid artery; E21.3 Hyperparathyroidism, unspecified; I47.9 Paroxysmal tachycardia, unspecified; F10.90 Alcohol use, unspecified, uncomplicated; Z86.718 Personal history of other venous thrombosis and embolism; E83.52 Hypercalcemia; I10 Essential (primary) hypertension; G62.9 Polyneuropathy, unspecified; E78.2 Mixed hyperlipidemia; R26.89 Other abnormalities of gait and mobility
CPT/HCPCS: 80048; 80061; 82306; 82310; 82607; 83540; 83550; 83970; 84443; 85025; 85045

== ENCOUNTER → 2024-11-02 10:07 | Outpatient (CLI) | payer MEDICARE, BC, SELFPAY ==
[2024-11-02 19:03] LABS: Add Manual Diff / Slide Review NO; Basophils Absolute Auto 0 /uL (0-100); Basophils Percent Auto 1.5 % (0-2); Eosinophils Absolute Auto 100 /uL (0-450); Eosinophils Percent Auto 2.8 % (2-4); Hematocrit 36.6 % (36-46); Hemoglobin 12.7 g/dL (12.0-16.0); Lymphocytes Absolute Auto 1000 /uL (1100-4500); Lymphocytes Percent Auto 39.7 % (25-40); Mean Corpuscular HGB Conc 34.8 % (30-36); Mean Corpuscular Hemoglobin 41.1 PG (26-34); Mean Corpuscular Volume 118.3 fL (80-100); Monocytes Absolute Auto 200 /uL (0-900); Monocytes Percent Auto 7.1 % (3-14); Neutrophils Absolute Auto 1200 /uL (1500-7000); Neutrophils Percent Auto 48.9 % (50-75); Platelet Count 140 X10^3/uL (150-400); Red Blood Cell Count 3.09 X10^6/uL (4.0-5.2); Red Cell Distribution Width 13.9 % (11.6-14.8); White Blood Cell Count 2.5 X10^3/uL (4.5-11.0)
[2024-11-02 19:07] LABS: Alanine Aminotransferase 22 IU/L (<35); Albumin 4.3 g/dL (3.5-5.0); Albumin Globulin Ratio 1.7 (1.0-2.8); Alkaline Phosphatase 102 U/L (38-126); Aspartate Aminotransferase 27 IU/L (14-36); BUN Creatinine Ratio 18.3 (6-22); Bilirubin Total 0.8 mg/dL (0.2-1.3); Blood Urea Nitrogen 17 mg/dL (7-17); Calcium 11.1 mg/dL (8.4-10.2); Carbon Dioxide 22 mmol/L (22-32); Chloride 110 mmol/L (98-107); Cholesterol 150 mg/dL (140-199); Estimated Glomerular Filt Rate 60 mL/min (>60); Globulin 2.6 g/dL (1.7-4.1); Glucose 111 mg/dL (70-99); HDL Cholesterol 83 mg/dL (40-60); HEMOLYSIS < 15 (0-50); LDL Cholesterol Calculated 48 mg/dL (<100); Potassium 4.7 mmol/L (3.4-5.1); Sodium 141 mmol/L (137-145); Total Protein 6.9 g/dL (6.3-8.2); Triglycerides 93 mg/dL (35-150)
[2024-11-03 15:57] LABS: Hep C Virus Ab w/Reflex Quant NEGATIVE s/c (NEGATIVE)
[2024-11-04 08:36] LABS: Calcium 10.8 mg/dL (8.7-10.3); Parathyroid Hormone, Intact 132 pg/mL (15-65)
== END ==
PROVIDERS: PCP Family Medicine; Visit Provider Family Medicine
DX: D64.9 Anemia, unspecified (principal); Z13.6 Encounter for screening for cardiovascular disorders; Z11.59 Encounter for screening for other viral diseases; F10.90 Alcohol use, unspecified, uncomplicated; I65.29 Occlusion and stenosis of unspecified carotid artery; Z86.718 Personal history of other venous thrombosis and embolism; I10 Essential (primary) hypertension; E21.3 Hyperparathyroidism, unspecified; E78.2 Mixed hyperlipidemia; E83.52 Hypercalcemia
CPT/HCPCS: 80053; 80061; 82310; 83970; 85025; 86803

== ENCOUNTER 2025-03-30 14:49 | Emergency (ER) | payer MEDICARE, BC, SELFPAY ==
[2025-03-30] VITALS (12 sets, daily range): BP systolic 124–170; BP diastolic 63–86; PULSE 59–83; RESP 11–29; TEMP 36.6; O2SAT 96–100; BMI 22.1
--- NOTE | 2025-03-30 15:00 | DI.CT.S_ITS ---
PROCEDURE: CT CHEST ABD PEL W CON INDICATIONS: fall ribs, back pelvis all hurt TECHNIQUE: After the administration of intravenous contrast, 5 mm thick sections acquired from the lung apices to the symphysis. 2.5 mm thick coronal and sagittal reformats were acquired. Additional 7 mm thick coronal maximum intensity projection (MIP) reformats acquired through the lungs. Optional 10-minute delayed imaging may be performed from the kidneys to the bladder. For radiation dose reduction, the following was used: automated exposure control, adjustment of mA and/or kV according to patient size. COMPARISON: None. FINDINGS: Image quality: Diagnostic. CHEST: Lower Neck: No enlarged lymph nodes. Thyroid: No thyroid nodules which require sonographic evaluation. Axillae: No enlarged lymph nodes. Chest Wall: No subcutaneous gas. Lungs and Pleura: No pulmonary contusions or lacerations. Linear scarring/atelectasis are seen scattered in periphery of bilateral lung page. No acute airspace opacities. No pneumothorax or hemothorax. Mediastinum: No mediastinal hematomas. Heart size is enlarged with small to moderate pericardial effusion and measures up to 1.1 cm in thickness adjacent to left ventricle. Thoracic aorta is normal in size. No evidence of aortic dissection. Prominent size of main pulmonary artery which can be seen associated with pulmonary vascular hypertension. No mediastinal or hilar adenopathy. Esophagus is normal in caliber. Small to moderate-sized hiatal hernia. ABDOMEN: Liver: No lacerations. Simple appearing hepatic cysts are noted. No gross solid appearing hepatic lesion. Gallbladder: No radiopaque gallstones or wall thickening. Biliary ducts: No biliary dilation. Pancreas: Homogenous enhancement. Spleen: Homogenous enhancement without laceration or hematoma. Adrenal Glands: Symmetric enhancement. Thickened bilateral adrenal glands. No discrete adrenal nodules. Kidneys and Ureters: Symmetric enhancement. No hydronephrosis. No solid mass. No complex renal cystic lesion which requires follow up. Stomach and Bowel: Normal colonic caliber, without significant wall thickening. No abscess collection. Peritoneum: No abnormal intraperitoneal fluid. No free air. Ventral Wall: No hernia. Abdominal Nodes: No retroperitoneal or mesenteric adenopathy by size criteria. Vessels: Aorta and inferior vena cava are normal in size. PELVIS: Pelvic Organs: Pessary device is noted. Bladder: Normal thickness. Pelvic Nodes: No enlarged lymph nodes. Miscellaneous: No inguinal hernias are seen. Bones: Pelvic ring and hip joints appear intact. No displaced rib fractures. Chronic appearing superior endplate compression deformity at L2 level is seen. No acute vertebral body compression fracture. Spondylitic changes are noted throughout thoracic and lumbar spine. IMPRESSION: 1. No evidence of traumatic injury to the chest, abdomen or pelvis. 2. Small to moderate amount of pericardial effusion. 3. Other chronic findings as described above. Dictated by: Carlos Davis M.D. on 03/30/2025 at 16:12 Approved by: Carlos Davis M.D. on 03/30/2025 at 16:20
--- NOTE | 2025-03-30 15:00 | DI.CT.S_ITS ---
PROCEDURE: CT HEAD/BRAIN WO CON INDICATIONS: fall on xeralto TECHNIQUE: Noncontrast 4.5 mm thick angled axial sections acquired from the foramen magnum to the vertex, with coronal and sagittal reformats. For radiation dose reduction, the following was used: automated exposure control, adjustment of mA and/or kV according to patient size. COMPARISON: [facility], CT, CT HEAD/BRAIN WO CON, 12/15/2022, 14:33. FINDINGS: Image quality: Diagnostic. CSF spaces: Basal cisterns are patent. No extra-axial fluid collections. The ventricles are symmetric in size and shape. Brain: No intracranial bleeds or mass effect. There is cerebral volume loss, with resultant ventricular and sulcal prominence. Tiny calcifications are noted in bilateral basal ganglia. There are periventricular and deep white matter chronic small vessel ischemic changes. There is intracranial internal carotid artery atherosclerosis. Skull and face: Calvarium and visualized facial bones appear intact, without suspicious lesions. Sinuses: Retention cyst versus mucocele in right maxillary sinus is again seen. Bilateral mastoid air cells are well aerated. IMPRESSION: No acute intracranial pathology. No significant changes from prior study. Dictated by: Carlos Davis M.D. on 03/30/2025 at 15:50 Approved by: Carlos Davis M.D. on 03/30/2025 at 15:51
--- NOTE | 2025-03-30 15:00 | DI.CT.S_ITS ---
PROCEDURE: CT CERVICAL SPINE WO CON INDICATIONS: fall TECHNIQUE: Noncontrast 3 mm thick sections acquired from the skull base to the T4 level. Sagittal and coronal reformats were then constructed. For radiation dose reduction, the following was used: automated exposure control, adjustment of mA and/or kV according to patient size. COMPARISON: None. FINDINGS: Image quality: Excellent. Bones: No fractures or dislocations loss of disc height, degenerative endplate changes and bilateral facet hypertrophic changes are noted throughout cervical spine.. Visualized superior ribs are intact. Soft tissues: Prevertebral soft tissues are normal in thickness. No paravertebral hematomas. No apical pneumothoraces. IMPRESSION: 1. No displaced fracture or traumatic subluxation.. 2. Spondylitic changes are noted throughout cervical spine. Dictated by: Carlos Davis M.D. on 03/30/2025 at 15:51 Approved by: Carlos Davis M.D. on 03/30/2025 at 15:53
--- NOTE | 2025-03-30 15:49 | PC.NURSE ---
Pt presents to ER after persistent light headedness for a~2/3 days. Pt reports unwitnessed fall ~2days ago and was found down by caregiver. Pt reports she fell getting out of bed and that she has been lightheaded for 2-3 days when she gets up to move around. Denies any lightheadedness while laying down. A&O x4. Pt reports pain in R hip and lower back as well as L shoulder pain from fall. Denies LOC or hitting head during fall. Reports some chest pain starting around the same time as dizziness but unable to describe. Lung sounds are clear and equal.
[2025-03-30 16:14] LABS: Add Manual Diff / Slide Review NO; Hematocrit 31.5 % (36-46); Hemoglobin 10.7 g/dL (12.0-16.0); Lymphocytes Absolute Auto 1000 /uL (1100-4500); Mean Corpuscular HGB Conc 33.8 % (30-36); Mean Corpuscular Hemoglobin 39.8 PG (26-34); Mean Corpuscular Volume 117.8 fL (80-100); Platelet Count 153 X10^3/uL (150-400)
[2025-03-30 16:17] LABS: INR 1.9 (0.9-1.3); Prothrombin Time 21.4 SECONDS (9.4-12.5)
[2025-03-30 16:20] LABS: PTT Partial Thromboplastin Tim 33 SECONDS (25.1-36.5)
[2025-03-30 16:21] LABS: Alanine Aminotransferase 19 IU/L (<35); Albumin 4.0 g/dL (3.5-5.0); Albumin Globulin Ratio 1.5 (1.0-2.8); Alkaline Phosphatase 78 U/L (38-126); Blood Urea Nitrogen 21 mg/dL (7-17); Calcium 10.3 mg/dL (8.4-10.2); Carbon Dioxide 22 mmol/L (22-32); Chloride 109 mmol/L (98-107); Estimated Glomerular Filt Rate > 60 mL/min (>60); Globulin 2.7 g/dL (1.7-4.1); Glucose 95 mg/dL (70-99); HEMOLYSIS < 15 (0-50); Potassium 4.3 mmol/L (3.4-5.1); Sodium 137 mmol/L (137-145); Total Protein 6.7 g/dL (6.3-8.2)
[2025-03-30 16:35] LABS: Acanthocytes 1+; Anisocytosis 1+; Macrocytosis 3+; Ovalocytes 1+
--- NOTE | 2025-03-30 17:18 | ED.FALL ---
HPI - Fall General Chief Complaint: Syncope Stated Complaint: fall on Time Seen by Provider: 03/30/25 14:58 Source: patient Mode of arrival: Wheelchair History of Present Illness HPI Narrative: Patient is an 84-year-old female history of atrial fibrillation on Xarelto presenting today after ground level fall 2 days ago. She does have caregivers but not 12/01. She is here with a caregiver now who reports that she fell 2 days ago getting out of bed. Patient states that she was sitting on the side when she just kind of fell forward. She typically has a walker something to hold onto but she just was not able to get anything. She did not hit her head no loss of consciousness. She is having ongoing pain throughout her body including her neck her ribs in her left shoulder. Related Data Home Medications ?Medication ?Instructions ?Recorded ?Confirmed ascorbate calcium (vitamin C) 500 1 g PO .HOLD 02/15/25 02/15/25 mg tablet Previous Rx's ?Medication ?Instructions ?Recorded atorvastatin 20 mg tablet 20 mg PO BEDTIME #90 tabs 01/31/25 sulfamethoxazole 800 1 tab PO BID #10 tabs 02/19/25 mg-trimethoprim 160 mg tablet (Bactrim DS) rivaroxaban 20 mg tablet (Xarelto) 20 mg PO DAILY #90 tabs 03/16/25 Allergies Allergy/AdvReac Type Severity Reaction Status Date / Time ciprofloxacin (From Cipro) Allergy Intermediate Rash Verified 03/30/25 15:01 propofol Allergy Intermediate Shakiness Verified 03/30/25 15:01 Patient History Medical History (Updated 03/30/25 @ 18:22 by Becki Shaw DO) Anxiety and depression Measles (~1944) Chicken pox (~1943) Hemorrhoid Bifascicular block Leukopenia 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 Thoracic aortic ectasia Paroxysmal tachycardia, unspecified Personal history of malignant neoplasm of breast Cystocele Complete uterovaginal prolapse Primary hyperparathyroidism Tinnitus, unspecified ear Pyuria Poisoning by vitamins, accidental (unintentional), initial encounter Surgical History Anesthesia History of cataract removal with insertion of prosthetic lens (~2015) History of knee replacement History of knee replacement History of lumpectomy Family History Brother Cancer Child Age: 53 Multiple sclerosis Father Cancer Hypertension Mother Cancer Sister Age: 81 Heart attack Sister Cancer Smoking Status: Unknown if ever smoked Exam Initial Vital Signs Initial Vital Signs: Vital Signs Temperature 97.9 F 03/30/25 14:50 Pulse Rate 83 03/30/25 14:50 Respiratory Rate 14 03/30/25 14:50 Blood Pressure 135/74 03/30/25 14:50 Pulse Oximetry 97 03/30/25 14:50 Oxygen Delivery Method Room Air 03/30/25 14:50 GENERAL: Alert pleasant 84-year-old female HEENT: Head left-sided contusion no depression or crepitation,EOMI, pupils reactive, face symmetric, [moist] mucous membranes NECK: No vertebral tenderness full range of motion CARDIOVASCULAR: Regular rate and rhythm without murmurs, rubs or gallops. RESPIRATORY: Breath sounds equal bilaterally, no wheezes rales or rhonchi. ABDOMEN: Soft, nontender. Normoactive bowel sounds all 4 quadrants. No guarding or rebound. EXTREMITIES: Normal range of motion, no clubbing or edema. Neurovascularly intact NEUROLOGICAL: Alert and oriented x4.Normal gait and speech. Cranial nerves II through XII grossly intact. SKIN: Warm, dry, no laceration, no petechiae, no rashes or lesions. Course Orders Ordered: ED Orders 03/30/25 15:00 CT cervical spine wo con Stat CT chest abd pel w con Stat CT head/brain wo con Stat 03/30/25 16:04 CBC Auto Diff [Complete Blood Count AUTO DIFF] Stat CMP [Comprehensive Metabolic Panel] Stat PTT Partial Thromboplastin Luke Stat Prothrombin Time INR Stat 03/30/25 17:22 XR shoulder LT 2+ views Stat Vital Signs Vital signs: Vital Signs - 8 hr 03/30/25 14:50 Temperature 97.9 F Pulse Rate 83 Respiratory Rate 14 Blood Pressure 135/74 Pulse Oximetry 97 Oxygen Delivery Method Room Air MDM - Fall Lab Data 03/30/25 16:04 03/30/25 16:04 Labs: Lab Results 03/30/25 Range/Units 16:04 WBC 2.8 L (4.5-11.0) X10^3/uL RBC 2.68 L (4.0-5.2) X10^6/uL Hgb 10.7 L (12.0-16.0) g/dL Hct 31.5 L (36-46) % MCV 117.8 H (80-100) fL MCH 39.8 H (26-34) PG MCHC 33.8 (30-36) % RDW 17.3 H (11.6-14.8) % Plt Count 153 (150-400) X10^3/uL Neut % (Auto) 50.7 (50-75) % Lymph % (Auto) 34.0 (25-40) % [place] % (Auto) 10.5 (3-14) % Eos % (Auto) 2.6 (2-4) % Baso % (Auto) 2.2 H (0-2) % Neut # (Auto) 1400 L (5758-5821) /uL Lymph # (Auto) 1000 L (0762-3212) /uL [place] # (Auto) 300 (0-900) /uL Eos # (Auto) 100 (0-450) /uL Baso # (Auto) 100 (0-100) /uL RBC Morphology See below Anisocytosis 1+ H Macrocytosis 3+ H Ovalocytes 1+ H Acanthocytes (Spur) 1+ H PT 21.4 H (9.4-12.5) SECONDS INR 1.9 H (0.9-1.3) APTT 33 (25.1-36.5) SECONDS Sodium 137 (137-145) mmol/L Potassium 4.3 (3.4-5.1) mmol/L Chloride 109 H (98-107) mmol/L Carbon Dioxide 22 (22-32) mmol/L BUN 21 H (7-17) mg/dL Creatinine 0.78 (0.52-1.04) mg/dL Estimated GFR > 60 (>60) mL/min BUN/Creatinine Ratio 26.9 H (6-22) Glucose 95 (70-99) mg/dL Calcium 10.3 H (8.4-10.2) mg/dL Total Bilirubin 0.9 (0.2-1.3) mg/dL AST 24 (14-36) IU/L ALT 19 (<35) IU/L Alkaline Phosphatase 78 (38-126) U/L Total Protein 6.7 (6.3-8.2) g/dL Albumin 4.0 (3.5-5.0) g/dL Globulin 2.7 (1.7-4.1) g/dL Albumin/Globulin Ratio 1.5 (1.0-2.8) Imaging Data CT scan - head: Radiologist's Impression: PROCEDURE: CT HEAD/BRAIN WO CON INDICATIONS: fall on xeralto TECHNIQUE: Noncontrast 4.5 mm thick angled axial sections acquired from the foramen magnum to the vertex, with coronal and sagittal reformats. For radiation dose reduction, the following was used: automated exposure control, adjustment of mA and/or kV according to patient size. COMPARISON: [facility], CT, CT HEAD/BRAIN WO CON, 12/15/2022, 14:33. FINDINGS: Image quality: Diagnostic. CSF spaces: Basal cisterns are patent. No extra-axial fluid collections. The ventricles are symmetric in size and shape. Brain: No intracranial bleeds or mass effect. There is cerebral volume loss, with resultant ventricular and sulcal prominence. Tiny calcifications are noted in bilateral basal ganglia. There are periventricular and deep white matter chronic small vessel ischemic changes. There is intracranial internal carotid artery atherosclerosis. Skull and face: Calvarium and visualized facial bones appear intact, without suspicious lesions. Sinuses: Retention cyst versus mucocele in right maxillary sinus is again seen. Bilateral mastoid air cells are well aerated. IMPRESSION: No acute intracranial pathology. No significant changes from prior study. Dictated by: Carlos Davis M.D. on 03/30/2025 at 15:50 CT - cervical spine: Radiologist's Impression: PROCEDURE: CT CERVICAL SPINE WO CON INDICATIONS: fall TECHNIQUE: Noncontrast 3 mm thick sections acquired from the skull base to the T4 level. Sagittal and coronal reformats were then constructed. For radiation dose reduction, the following was used: automated exposure control, adjustment of mA and/or kV according to patient size. COMPARISON: None. FINDINGS: Image quality: Excellent. Bones: No fractures or dislocations loss of disc height, degenerative endplate changes and bilateral facet hypertrophic changes are noted throughout cervical spine.. Visualized superior ribs are intact. Soft tissues: Prevertebral soft tissues are normal in thickness. No paravertebral hematomas. No apical pneumothoraces. IMPRESSION: 1. No displaced fracture or traumatic subluxation.. 2. Spondylitic changes are noted throughout cervical spine. Dictated by: Carlos Davis M.D. on 03/30/2025 at 15:51 CT scan - abdomen/pelvis: Radiologist's Impression: PROCEDURE: CT CHEST ABD PEL W CON INDICATIONS: fall ribs, back pelvis all hurt TECHNIQUE: After the administration of intravenous contrast, 5 mm thick sections acquired from the lung apices to the symphysis. 2.5 mm thick coronal and sagittal reformats were acquired. Additional 7 mm thick coronal maximum intensity projection (MIP) reformats acquired through the lungs. Optional 10-minute delayed imaging may be performed from the kidneys to the bladder. For radiation dose reduction, the following was used: automated exposure control, adjustment of mA and/or kV according to patient size. COMPARISON: None. FINDINGS: Image quality: Diagnostic. CHEST: Lower Neck: No enlarged lymph nodes. Thyroid: No thyroid nodules which require sonographic evaluation. Axillae: No enlarged lymph nodes. Chest Wall: No subcutaneous gas. Lungs and Pleura: No pulmonary contusions or lacerations. Linear scarring/atelectasis are seen scattered in periphery of bilateral lung page. No acute airspace opacities. No pneumothorax or hemothorax. Mediastinum: No mediastinal hematomas. Heart size is enlarged with small to moderate pericardial effusion and measures up to 1.1 cm in thickness adjacent to left ventricle. Thoracic aorta is normal in size. No evidence of aortic dissection. Prominent size of main pulmonary artery which can be seen associated with pulmonary vascular hypertension. No mediastinal or hilar adenopathy. Esophagus is normal in caliber. Small to moderate-sized hiatal hernia. ABDOMEN: Liver: No lacerations. Simple appearing hepatic cysts are noted. No gross solid appearing hepatic lesion. Gallbladder: No radiopaque gallstones or wall thickening. Biliary ducts: No biliary dilation. Pancreas: Homogenous enhancement. Spleen: Homogenous enhancement without laceration or hematoma. Adrenal Glands: Symmetric enhancement. Thickened bilateral adrenal glands. No discrete adrenal nodules. Kidneys and Ureters: Symmetric enhancement. No hydronephrosis. No solid mass. No complex renal cystic lesion which requires follow up. Stomach and Bowel: Normal colonic caliber, without significant wall thickening. No abscess collection. Peritoneum: No abnormal intraperitoneal fluid. No free air. Ventral Wall: No hernia. Abdominal Nodes: No retroperitoneal or mesenteric adenopathy by size criteria. Vessels: Aorta and inferior vena cava are normal in size. PELVIS: Pelvic Organs: Pessary device is noted. Bladder: Normal thickness. Pelvic Nodes: No enlarged lymph nodes. Miscellaneous: No inguinal hernias are seen. Bones: Pelvic ring and hip joints appear intact. No displaced rib fractures. Chronic appearing superior endplate compression deformity at L2 level is seen. No acute vertebral body compression fracture. Spondylitic changes are noted throughout thoracic and lumbar spine. IMPRESSION: 1. No evidence of traumatic injury to the chest, abdomen or pelvis. 2. Small to moderate amount of pericardial effusion. 3. Other chronic findings as described above. Dictated by: Carlos Davis M.D. on 03/30/2025 at 16:12 Extremity x-ray #1: Radiologist's Impression: PROCEDURE: XR SHOULDER LT MIN 2V INDICATIONS: pain fall TECHNIQUE: 3 views of the shoulder were acquired. COMPARISON: None. FINDINGS: Bones: No fractures or dislocations. No suspicious bony lesions. Visualized ribs appear intact. There are severe degenerative changes involving the acromioclavicular and glenohumeral joints. Coracoclavicular and acromioclavicular intervals are maintained. Diffuse osteopenia. Soft tissues: No suspicious soft tissue calcifications. IMPRESSION: Degenerative changes of the acromioclavicular and glenohumeral joints. No acute fracture or dislocation. If there is persistent clinical concern for occult fracture given adequate mechanism of injury, consider repeat imaging in 10-14 days. Immobilization as clinically indicated. Dictated by: Raymundo Sanchez M.D. on 03/30/2025 at 18:13 MDM Narrative Medical decision making narrative: Patient 84-year-old female on Xarelto presenting today 2 days after a ground level fall. Sounds like she was getting out of bed when she fell. Still having pain in her ribs neck shoulder and head. Workup in the emergency department is overall reassuring blood work is reassuring and appears stable. She does have stable leukopenia with WBC of 2.8 it was previously 3.3 anemia slightly low 10.7 hematocrit 31 point 5 previously 12.2 and 35.5. Electrolytes within normal limits no YOANDY glucose 95 Imaging reviewed no intracranial hemorrhage or fracture Shoulder x-ray shows degenerative changes Patient is not requiring any pain medication. This time no need for admission or any further workup Discharge Plan Departure Patient Disposition: Home Clinical Impression: Fall Instructions: How to Prevent Falls Activity Restrictions/Additional Instructions: *You have been diagnosed with fall *What to do: Make sure walker is set by bed *Continue to take medications as directed *Follow up with your primary care provider in 2-3 days or call [phone] *Return to ER if you should have increasing weakness confusion nausea vomiting or any new, worsening or concerning symptoms Prescriptions: No Action atorvastatin 20 mg tablet 20 mg PO BEDTIME Qty: 90 1RF sulfamethoxazole-trimethoprim [Bactrim DS] 800-160 mg tablet 1 tab PO BID Qty: 10 0RF ascorbate calcium (vitamin C) 500 mg tablet 1 g PO .HOLD Xarelto 20 mg tablet 20 mg PO DAILY Qty: 90 3RF Rx Instructions: must administer with evening meal Referrals: Myles Grace MD [Primary Care Provider, Family Practice] Stand Alone Forms: Patient Portal/API
--- NOTE | 2025-03-30 17:22 | DI.RAD.S_ITS ---
PROCEDURE: XR SHOULDER LT MIN 2V INDICATIONS: pain fall TECHNIQUE: 3 views of the shoulder were acquired. COMPARISON: None. FINDINGS: Bones: No fractures or dislocations. No suspicious bony lesions. Visualized ribs appear intact. There are severe degenerative changes involving the acromioclavicular and glenohumeral joints. Coracoclavicular and acromioclavicular intervals are maintained. Diffuse osteopenia. Soft tissues: No suspicious soft tissue calcifications. IMPRESSION: Degenerative changes of the acromioclavicular and glenohumeral joints. No acute fracture or dislocation. If there is persistent clinical concern for occult fracture given adequate mechanism of injury, consider repeat imaging in 10-14 days. Immobilization as clinically indicated. Dictated by: Raymundo Sanchez M.D. on 03/30/2025 at 18:13 Approved by: Raymundo Sanchez M.D. on 03/30/2025 at 18:14
== END 2025-03-30 19:10 | disposition home or self-care (01) ==
PROVIDERS: Emergency Provider Emergency Medicine; PCP Family Medicine
DX: M54.2 Cervicalgia (principal); R07.81 Pleurodynia; M25.512 Pain in left shoulder; W06.XXXA Fall from bed, initial encounter; Z79.01 Long term (current) use of anticoagulants
CPT/HCPCS: 36415; 70450; 71260; 72125; 73030; 74177; 80053; 85025; 85610; 85730; 99283; 99284; Q9967

== ENCOUNTER → 2025-04-04 13:10 | Outpatient (CLI) | payer MEDICARE, BC, SELFPAY ==
[2025-04-04 18:57] LABS: Add Manual Diff / Slide Review NO; Hematocrit 31.9 % (36-46); Hemoglobin 10.9 g/dL (12.0-16.0); Lymphocytes Absolute Auto 1000 /uL (1100-4500); Mean Corpuscular HGB Conc 34.2 % (30-36); Mean Corpuscular Hemoglobin 40.0 PG (26-34); Mean Corpuscular Volume 116.9 fL (80-100); Platelet Count 170 X10^3/uL (150-400)
[2025-04-04 19:23] LABS: Blood Urea Nitrogen 22 mg/dL (7-17); Calcium 10.9 mg/dL (8.4-10.2); Carbon Dioxide 21 mmol/L (22-32); Chloride 109 mmol/L (98-107); Estimated Glomerular Filt Rate > 60 mL/min (>60); Glucose 97 mg/dL (70-99); HEMOLYSIS 41 (0-50); Potassium 4.4 mmol/L (3.4-5.1); Sodium 140 mmol/L (137-145)
[2025-04-04 20:01] LABS: Vitamin B12 732 pg/mL (239-931)
== END ==
PROVIDERS: PCP Family Medicine; Visit Provider Family Medicine
DX: D64.9 Anemia, unspecified (principal); F03.A0 Unspecified dementia, mild, without behavioral disturbance, psychotic disturbance, mood disturbance, and anxiety; E53.8 Deficiency of other specified B group vitamins
CPT/HCPCS: 80048; 82397; 82607; 85025